=== PATIENT | male | born 1995 | race Caucasian/White ===

== ENCOUNTER 2024-03-08 09:04 | Emergency (ER) | payer OTHER, SELFPAY ==
[2024-03-08 09:05] VITALS: BP 146/93; PULSE 122; RESP 18; TEMP 36.7; O2SAT 99; BMI 24.3
--- NOTE | 2024-03-08 09:30 | CT_ITS ---
STUDY: CTA CHEST REASON FOR EXAM: Male, 28 years old. cp, sob RADIATION DOSAGE (If Supplied By Facility): CTDIvol = ( 8.11 ) mGy, DLP = ( 465.35 ) mGycm TECHNIQUE: The examination was performed with the intravenous administration of IV 100mL Isovue-370. Post-processing of the angiographic images was performed, with multiplanar reformation and 3D reconstruction. Individualized dose optimization techniques were used for this CT. COMPARISON: None. FINDINGS: Normal enhancement of the main pulmonary artery and right and left pulmonary arteries. Normal enhancement of the bilateral peripheral
--- NOTE | 2024-03-08 09:31 | CT_ITS ---
STUDY: CT ABDOMEN AND PELVIS WITH CONTRAST REASON FOR EXAM: Male, 28 years old. RUQ pain, recent liver resection for benign tumor. RADIATION DOSAGE (If Supplied By Facility): CTDIvol = ( 8.11 ) mGy, DLP = ( 465.35 ) mGycm TECHNIQUE: Transaxial images were obtained from the dome of the diaphragm to the symphysis pubis without oral contrast. IV 100mL Isovue-370 was administered. Sagittal and coronal images were reconstructed. Individualized dose optimization techniques were used for this CT. COMPARISON: None. FINDINGS: Small right pleural effusion with right basilar atelectasis. The visualized portions of the heart are within normal limits. There is a 7.4 cm x 5.7 cm predominantly cystic density in the upper lateral aspect of the right lobe of the liver. The inferior aspect of the cystic density has soft tissue density with air within it most likely representing cryotherapy or heat therapy of the tumor. Clips are seen along the posterior aspect of the cystic mass. There is also evidence of a 8.8 mm well-defined nodule with the peripheral enhancement in the anterior aspect of the left lobe of the liver suggests a possible hemangioma. Normal gallbladder and extrahepatic biliary system. Normal spleen. Normal pancreas. Normal bilateral adrenal glands. Normal right kidney. Normal left kidney. Normal visualized stomach. Normal small intestine. Normal colon. The appendix is visualized and appears normal. Normal abdominal aorta. Normal inferior vena cava. Normal retroperitoneum. Normal urinary bladder. Normal abdominal wall. Normal osseous structures. CT/Abdomen/Pelvis W IV Cont ONLY IMPRESSION: Complex cystic structure in the lateral aspect of the right lobe of the liver with soft tissue density along the inferior aspect of this cystic structure with air in it suggestive of recent cryotherapy or heat therapy. There is also evidence of a small hemangioma in the left lobe of the liver. Pleural effusion with left basilar atelectasis and/or infiltrate. Electronically Signed: Juan Carlos Day MD at 11:18 EDT ,
--- NOTE | 2024-03-08 09:33 | EDS_ITS ---
HPI History of Present Illness Chief Complaint: Abd Pain Informant: patient Onset/Context/Timing Onset: Yesterday Narrative Narrative: Patient presents secondary right upper quadrant pain that started yesterday. 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 About 4 days ago he had developed some right lower chest pain and was seen at the emergency room at [place]. He had CT imaging done that revealed possible pneumonia and he was started on antibiotics. He states his pain improved but he continues to have intermittent fevers. His right upper quadrant abdominal pain started last evening. He is currently taking ibuprofen only for pain. [facility] Medical History Depression Home Medications amitriptyline 10 mg tablet 10 mg PO QHS 03/08/24 [History Last Taken Unknown] bupropion HCl 150 mg 24 hr tablet, extended release 150 mg PO DAILY 03/08/24 [History Last Taken Unknown] dutasteride 0.5 mg capsule 0.5 mg PO DAILY 03/08/24 [History Last Taken Unknown] escitalopram oxalate 5 mg tablet 5 mg PO DAILY 03/08/24 [History Last Taken Unknown] levofloxacin 750 mg tablet 750 mg PO DAILY 03/08/24 [History Last Taken Unknown] oxycodone 5 mg tablet 5 mg PO Q6H PRN pain 3 days #14 tabs 03/08/24 [Rx Last Taken Unknown] trazodone 50 mg tablet 50 mg PO QHS 03/08/24 [History Last Taken Unknown] Allergy/AdvReac Type Severity Reaction Status Date / Time Penicillins Allergy Mild Rash Verified 03/08/24 09:05 Surgical History (Updated 03/08/24 @ 09:31 by Regla Cody) Hx of resection of liver Social History Smoking Status: Never smoker ROS ROS ED Constitutional Constitutional ED: Reports fever(s); Denies chills Eyes Eyes: Denies change in vision or discharge from eye(s) ENT ENT ED: Denies discharge from eye(s), rhinorrhea or sore throat Cardiovascular Cardiovascular: Denies chest pain or palpitations Respiratory/Chest Respiratory/Chest: Denies cough or dyspnea Gastrointestinal Gastrointestinal: Reports abdominal pain and nausea; Denies diarrhea or vomiting Genitourinary Genitourinary ED: Denies dysuria Musculoskeletal Musculoskeletal: Denies back pain or extremity pain Integumentary Denies Abrasions or rash Neurologic Neurologic: Denies headache(s) or weakness Psychiatric Psychiatric: Reports anxiety; Denies depression Endocrine Endocrinology: Denies polydipsia or polyuria Allergic/Immunologic Allergic/Immunologic ED: Denies lip swelling or urticaria EXAM Physical Exam Const Vital Signs: 03/08/24 09:05 03/08/24 10:04 03/08/24 11:00 Temperature 98.0 F Temperature Source Temporal Pulse Rate 122 H 108 H 126 H Respiratory Rate 18 16 18 Blood Pressure 146/93 H 146/90 H 137/92 H Blood Pressure Mean 110 108 107 Pulse Ox 99 97 98 Oxygen Delivery Method Room Air Room Air Room Air 03/08/24 12:00 03/08/24 13:00 03/08/24 14:00 Temperature 97.6 F L Temperature Source Pulse Rate 103 H 100 115 H Respiratory Rate 16 16 23 H Blood Pressure 136/88 H 134/82 H 151/66 H Blood Pressure Mean 104 99 94 Pulse Ox 98 98 98 Oxygen Delivery Method Room Air Room Air Positive well nourished and well developed General Appearance ED: well developed HEENT Reports moist mucous membranes Eyes EOMs intact bilaterally Chest Wall inspection of chest normal and palpation of chest normal Resp normal respiratory effort and clear to auscultation bilaterally Cardio Rate: tachycardic GI GI Narrative: Abdomen soft with minimal tenderness in the right upper quadrant. No guarding or rebound. Extremity normal to inspection Neuro oriented x3 and no sensory deficits noted Motor Exam: strength 5/5 throughout Psych mental status grossly normal Skin no rashes or lesions noted MDM MDM MDM Narrative Medical decision making narrative: Patient placed on university teacher. EKG obtained to evaluate for cardiac arrhythmia/ischemia. IV line established. Labwork obtained to evaluate for leukocytosis, anemia, and electrolyte derangement. Patient undergo a CTA of the chest along with a CT abdomen pelvis with IV contrast to evaluate for potential PE, worsening pneumonia, hematoma, focal abscess. Patient given morphine and Zofran for pain control. Lab Data Labs: Laboratory Results - last 24 hr 03/08/24 09:28 WBC 9.4 RBC 4.44 L Hgb 12.3 L Hct 38.1 L MCV 85.8 MCH 27.7 MCHC 32.3 RDW Std Deviation 39.1 RDW Coeff of Mikey 12.5 Plt Count 816 H* MPV 9.4 Immature Gran % (Auto) 0.400 Neut % (Auto) 71.4 H Lymph % (Auto) 12.8 L [place] % (Auto) 10.2 H Eos % (Auto) 4.8 Baso % (Auto) 0.4 Absolute Neuts (auto) 6.7 Absolute Lymphs (auto) 1.20 Nucleated RBC % 0 Diff Path Review Reviewed Platelet Estimate MKD INC PT 14.8 INR 1.2 APTT 42.0 H Sodium 136 Potassium 3.5 Chloride 102 Carbon Dioxide 28.0 Anion Gap 6 BUN 16 Creatinine 1.11 Estim Creat Clear Calc 90.98 Est GFR (MDRD) Af Amer 100 Est GFR (MDRD) Non-Af 82 BUN/Creatinine Ratio 14.4 Glucose 97 Lactic Acid 1.6 Calcium 9.4 Total Bilirubin 0.70 Direct Bilirubin 0.23 AST 19 ALT 47 Alkaline Phosphatase 102 Total Protein 7.3 Albumin 3.5 Globulin 3.8 Lipase 15 Radiography Diagnostic Testing: Clinical Impression(s) from Imaging Studies Chest CTA 03/08/24 09:30 IMPRESSION: Moderate-sized right pleural effusion with right basilar atelectasis and/or infiltration. Atelectasis in the right middle lobe as well. No evidence of pulmonary embolism. Electronically Signed: Juan Carlos Day MD at 11:19 EDT , Abdomen/Pelvis CT 03/08/24 09:31 IMPRESSION: Complex cystic structure in the lateral aspect of the right lobe of the liver with soft tissue density along the inferior aspect of this cystic structure with air in it suggestive of recent cryotherapy or heat therapy. There is also evidence of a small hemangioma in the left lobe of the liver. Pleural effusion with left basilar atelectasis and/or infiltrate. Electronically Signed: Juan Carlos Day MD at 11:18 EDT , Treatment and Re-Evaluation :: CBC was a white count 9.4 with 12.3 hemoglobin. Platelet count is elevated at 816. Coags are unremarkable. Chemistry studies are normal along with LFTs and lipase. CTA of the chest reveals a moderate-sized right pleural effusion with right basilar atelectasis and/or infiltrate. Atelectasis in the right middle lobe as well. No evidence of pulmonary embolism. CT scan of the abdomen and pelvis reveals complex cystic structure in the lateral aspect of the right lobe of the liver with soft tissue density along the inferior aspect of this cystic structure with air in it suggestive of recent cryotherapy or heat therapy. There is evidence of a small hemangioma in the left lobe of the liver. Test results are discussed with the patient. Patient does not feel that he needs to be transferred for inpatient care. I attempted to contact patient's surgeon, Dr. Key at [facility]. We were notified that Dr. Walls is out of town but one of his partners to be able to call us back. After waiting for a couple hours I discussed with the patient that I am still waiting a call back. He would prefer to not wait here in the emergency room. I advised him that I would speak with the doctor if and when they call and have them call him with any updates or concerns. He is comfortable with this plan. When I reviewed the written report from his CT scan earlier this week it appears similar to today's CT. His vital signs have remained stable in the emergency room. Patient's heart rate will come down to the high 90s or low 100s, when you enter the room to start speaking with him his heart rate will increase again to 115-120. Patient was given a prescription for oxycodone. He was encouraged to contact his surgeons office soon as possible. Shortly after the patient left the emergency room I did receive a call back from the on-call surgeon. He had been able to review the CT images that we had sent to [facility]. He does feel the patient has evidence of infection at his surgical site and will need an IR drain and have the pleural effusion tapped. He would prefer the patient come to [facility]. I advised him that we would let the patient be discharged and he states that they will contact him and ask him to come to [facility] where they will admit him for further care. I did confirm with him that they will contact the patient and we did not need to contact him here. Surgeon comfortable with the plan. Discharge Plan Triage Chief Complaint: Abd Pain ED Provider: Iwona Nina Dx/Rx/DC Orders Clinical Impression: Encounter for post surgical wound check, Pleural effusion, Abdominal pain Instructions: ED Pleural Effusion, ED Post Op Wound Check, Pain, ED Abdominal Pain Unkn Cause Male... Prescriptions: New oxycodone 5 mg tablet 5 mg PO Q6H PRN (Reason: pain) 3 Days Qty: 14 0RF No Action trazodone 50 mg tablet 50 mg PO QHS amitriptyline 10 mg tablet 10 mg PO QHS levofloxacin 750 mg tablet 750 mg PO DAILY dutasteride 0.5 mg capsule 0.5 mg PO DAILY bupropion HCl 150 mg tablet extended release 24 hr 150 mg PO DAILY escitalopram oxalate 5 mg tablet 5 mg PO DAILY Primary Care Provider: VIVEK ZAMUDIO MD Referrals: [facility] Doctor,Out of [Non-Staff] - Activity Restrictions/Additional Instructions: Please follow-up with your surgeon as soon as possible. Disposition Disposition: Home, Self Care Discharge Date/Time: 03/08/24 14:07
[2024-03-08] MEDS: Morphine 4 MG/ML Syringe IV (09:37)
[2024-03-08] MEDS: Ondansetron 4 MG/2 ML Vial IV (09:37)
[2024-03-08] MEDS: 0.9% Normal Saline (1000mL) 1,000 ML 150 ML IV (09:47)
[2024-03-08 10:04] VITALS: BP 146/90; PULSE 108; RESP 16; O2SAT 97
[2024-03-08 10:12] LABS: AST(SGOT) 19 U/L (15-37); Alanine Aminotransfer ALT/SGPT 47 U/L (16-61); Albumin, Serum 3.5 g/dL (3.2-5.0); Alkaline Phosphatase 102 U/L (45-117); Anion Gap 6 (5-15); BUN 16 mg/dL (7-18); BUN/Creat Ratio 14.4 RATIO (10-20); Bilirubin, Direct 0.23 mg/dL (0.00-0.30); Calcium,Total 9.4 mg/dL (8.5-10.1); Chloride 102 mmol/L (98-107); Creatinine, Serum 1.11 mg/dL (0.70-1.30); EST Glomerular Filtration Rate 82 mL/min (>60); Est Glom Filt Rate - Afr Amer 100 mL/min (>60); Estimated Creatinine Clearance 90.98 ml/min; Globulin 3.8 g/dL (2.2-4.2); Glucose 97 mg/dL (74-106); Lipase 15 U/L (13-75); Potassium 3.5 mmol/L (3.5-5.1); Protein, Total 7.3 g/dL (6.4-8.2); Sodium Level 136 mmol/L (136-145)
[2024-03-08 10:18] LABS: Lactic Acid 1.6 mmol/L (0.4-1.9)
[2024-03-08 10:22] LABS: Absolute Neutrophil Count 6.7 X10^3/uL (2.0-7.7); Basophil# 0.04 X10^3/uL; Basophil% 0.4 % (0-1); Eosinophil# 0.45 X10^3/uL; Eosinophils% 4.8 % (0-5); Hematocrit 38.1 % (40-54); Hemoglobin 12.3 g/dL (13.0-16.5); Lymphocyte % 12.8 % (19-41); Mean Corp Hgb Conc 32.3 g/dL (32-36); Mean Corpuscular Hgb 27.7 pg (27.0-32.0); Mean Corpuscular Volume 85.8 fL (80-94); Mean Platelet Vol. 9.4 fl (6.2-12.0); Monocyte# 0.96 X10^3/uL; Monocyte% 10.2 % (0-10); NRBC Flagged by Analyzer 0 % (0-5); Neutrophil # 6.71 X10^3/uL (2.7-7.7); Neutrophil % 71.4 % (47-70); POSITIVE COUNT YES; RBC Distribution Width CV 12.5 % (11.6-14.6); RBC Distribution Width SD 39.1 fl (35.1-43.9); Red Blood Count 4.44 M/mm3 (4.6-6.2); White Blood Count 9.4 K/mm3 (4.4-11.0)
[2024-03-08 10:27] LABS: International Normalized Ratio 1.2; Prothrombin Time (Protime)PT. 14.8 SECONDS (11.7-14.9)
[2024-03-08 10:30] LABS: Platelet Count 816 K/mm3 (150-450)
[2024-03-08 10:31] LABS: Differential Indicated SCAN CRITERIA MET
[2024-03-08 10:54] LABS: Platelet Estimate MKD INC (ADEQ)
[2024-03-08 11:00] VITALS: BP 137/92; PULSE 126; RESP 18; O2SAT 98
--- NOTE | 2024-03-08 11:45 | ED.RN ---
PT REQUESTED TO WAIT FOR PAIN MEDICATION UNTIL AFTER ATTEMPTING TO USE THE BATHROOM. PT NOW STATES I DON'T WANT IT
[2024-03-08 12:00] VITALS: BP 136/88; PULSE 103; RESP 16; O2SAT 98
[2024-03-08 13:00] VITALS: BP 134/82; PULSE 100; RESP 16; O2SAT 98
[2024-03-08 13:33] LABS: Pathologist Review Reviewed
[2024-03-08 14:00] VITALS: BP 151/66; PULSE 115; RESP 23; TEMP 36.4; O2SAT 98
== END 2024-03-08 14:07 | disposition home or self-care (01) ==
PROVIDERS: Emergency Provider Emergency Medicine; Visit Provider Emergency Medicine
DX: Z51.89 Encounter for other specified aftercare (principal); J90 Pleural effusion, not elsewhere classified; R10.9 Unspecified abdominal pain; F32.A Depression, unspecified; Z79.899 Other long term (current) drug therapy
CPT/HCPCS: 71275; 74177; 80048; 80076; 83605; 83690; 85025; 85610; 85730; 87040; 93005; 96361; 96374; 96375; 99283; J7030; Q9967; A4216; J2405